=== PATIENT | female | born 1990 | race Two or more races ===

== ENCOUNTER → 2017-06-25 | Emergency (ER) | payer OTHER ==
--- NOTE | 2017-06-25 05:01 | NUR ---
PT CAME TO ER WINDOW AND TOLD ADMITTING THAT SHE FELT BETTER AND WAS GOING HOME.LWBT
== END | disposition home or self-care (01) ==
LOC: ER 04:44
DX: R10.9 Unspecified abdominal pain (principal); Z53.21 Procedure and treatment not carried out due to patient leaving prior to being seen by health care provider

== ENCOUNTER 2017-11-28 08:21 | Emergency (ER) | payer OTHER ==
[~2017-11-28] VITALS: Ht 162.6 cm; Wt 74.8 kg
--- NOTE | 2017-11-28 08:37 | NUR ---
Patient provided urine for urinalysis. Urine sample sent to lab.
--- NOTE | 2017-11-28 08:40 | NUR ---
Dr. Bird in room with patient for evaluation
[2017-11-28] MEDS ORDERED: KETOROLAC TROMETHAMINE 15 MG INJ IV ONE (09:00)
[2017-11-28] MEDS ORDERED: METOCLOPRAMIDE HCL 10 MG/2 ML VIAL IV ONE (09:00)
[2017-11-28] MEDS ORDERED: IV NORMAL SALINE 1000 ML BAG IV ONE ×2 (09:00→10:45)
[2017-11-28] MEDS ORDERED: KETOROLAC TROMETHAMINE 15 MG INJ ONE (09:23)
[2017-11-28] MEDS ORDERED: METOCLOPRAMIDE HCL 10 MG/2 ML VIAL ONE (09:25)
[2017-11-28 09:31] LABS: BASOPHILS % (AUTO) 0.1 % (0.0-2.0); EOSINOPHILS # (AUTO) 0.2 K/uL (0.0-0.7); EOSINOPHILS % (AUTO) 1.5 % (0.0-7.0); HEMATOCRIT 40.8 % (31.2-41.9); HEMOGLOBIN 13.7 g/dL (10.9-14.3); LYMPHOCYTES # (AUTO) 0.8 K/uL (20.0-40.0); LYMPHOCYTES % (AUTO) 7.1 % (20.5-51.5); MEAN CORPUSCULAR HEMOGLOBIN 27.2 uug (24.7-32.8); MEAN CORPUSCULAR HGB CONC 34 g/dL (32.3-35.6); MEAN CORPUSCULAR VOLUME 81.1 fL (75.5-95.3); MONOCYTES # (AUTO) 0.2 K/uL (2.0-10.0); MONOCYTES % (AUTO) 2.1 % (0.0-11.0); NEUTROPHILS % (AUTO) 89.2 % (38.5-71.5); PLATELET COUNT (AUTO) 288 K/uL (179-408); RED BLOOD CELL COUNT(AUTO) 5.03 MIL/uL (3.63-4.92); WHITE BLOOD COUNT (AUTO) 11.2 K/uL (3.8-11.8)
[2017-11-28 09:38] LABS: CARBON DIOXIDE 24 mmol/L (21-32); CHLORIDE 103 mmol/L (98-107); CREATININE 0.5 mg/dL (0.6-1.3); GLUCOSE 108 mg/dL (74-106); POTASSIUM 3.9 mmol/L (3.5-5.1); UREA NITROGEN, BLOOD 7 mg/dL (7-18)
[2017-11-28 09:39] LABS: *BILIRUBIN,URIN NEGATIVE (NEGATIVE); *BLOOD, URINE Trace-intact (NEGATIVE); *CLARITY,URINE CLOUDY (CLEAR); *COLOR,URINE YELLOW (YELLOW); *KETONES,URINE TRACE (NEGATIVE); *PROTEIN,URINE NEGATIVE (NEGATIVE); *UROBILINOGEN,URINE 0.2 E.U./dl (NORMAL); LEUKOCYTE ESTERASE ,URINE NEGATIVE (NEGATIVE); NITRITE, URINE NEGATIVE (NEGATIVE); UGLUCOSE NEGATIVE (NEGATIVE)
--- NOTE | 2017-11-28 09:42 | NUR ---
PT OUT OF ER FOR CT.
[2017-11-28 09:43] LABS: ALANINE AMINOTRANSFERASE 131 U/L (14-59); ALKALINE PHOSPHATASE 62 U/L (50-136); ASPARTATE AMINOTRANSFERASE 80 U/L (15-37); BILIRUBIN,DIRECT < 0.1 mg/dL (0.0-0.2); LIPASE 104 U/L (73-393); TOTAL PROTEIN, SERUM 7.5 g/dL (6.4-8.2)
[2017-11-28 09:44] LABS: BILIRUBIN,TOTAL 0.6 mg/dL (0.2-1.0)
[2017-11-28 09:53] LABS: BACTERIA,URINE FEW /HPF (NONE SEEN); MUCUS,URINE MODERATE /LPF (0-FEW); SQUAMOUS EPITHELIAL CELL,UR MANY /HPF (NONE SEEN)
[2017-11-28] MEDS ORDERED: MORPHINE SULFATE 4 MG/1 ML DISP.SYRIN IV ONE (11:15)
[2017-11-28] MEDS ORDERED: ONDANSETRON IV *ER 4 MG/2 ML VIAL IV ONE (11:15)
[2017-11-28 11:45] VITALS: BP 120/77
[2017-11-28] MEDS ORDERED: ONDANSETRON 4 MG/2 ML VIAL ONE (11:45)
[2017-11-28] MEDS ORDERED: MORPHINE SULFATE 4 MG/1 ML DISP.SYRIN ONE (11:45)
--- NOTE | 2017-11-28 11:45 | NUR ---
IV removed. Catheter intact and site benign. Pressure and 4x4 gauze applied to site. No bleeding noted.
--- NOTE | 2017-11-28 11:45 | NUR ---
Patient discharged to home in stable conditon. Written and verbal after care instructions given. Patient verbalizes understanding of instructions.
== END 2017-11-28 11:49 | disposition home or self-care (01) ==
LOC: ER 08:21
DX: K42.9 Umbilical hernia without obstruction or gangrene (principal); R10.13 Epigastric pain; R10.11 Right upper quadrant pain; J45.909 Unspecified asthma, uncomplicated; Z90.49 Acquired absence of other specified parts of digestive tract
CPT/HCPCS: 36415; 71045; 83605; 83690; 84703; 85025; 85730; 87040; A4663; J1885; J2270; J2405; J2765; J7030; J7040

== ENCOUNTER 2021-04-11 09:25 | Emergency (ER) | payer OTHER ==
[~2021-04-11] VITALS: Ht 162.6 cm; Wt 77.1 kg
--- NOTE | 2021-04-11 09:45 | NUR ---
DR Stanley at the bedside for MSE.
[2021-04-11] MEDS ORDERED: ALBUTEROL SULFATE 8 GM HFA.AER.AD IH STA (09:52)
[2021-04-11] MEDS ORDERED: predniSONE 50 MG TABLET PO ONE (10:30)
[2021-04-11] MEDS ORDERED: ALBUTEROL SULFATE 2.5 MG/3 ML NEBU NEB ONE (10:30)
[2021-04-11] MEDS ORDERED: ALBUTEROL SULFATE 2.5 MG/3 ML NEBU ONE (10:39)
[2021-04-11] MEDS ORDERED: predniSONE 50 MG TABLET ONE (10:41)
[2021-04-11] MEDS ORDERED: AZIT250T PO (11:15)
[2021-04-11] MEDS ORDERED: BENZ-13 PO (11:15)
[2021-04-11] MEDS ORDERED: PRED50TA PO (11:15)
--- NOTE | 2021-04-11 11:20 | NUR ---
Pt states feeling better after breathing treatment.
--- NOTE | 2021-04-11 11:23 | NUR ---
Patient discharged to home in stable condition. Written and verbal after care instructions given. Patient verbalizes understanding of instructions. Stressed follow up or return to ER for worsening s/s.
[2021-04-11 11:24] VITALS: BP 135/88
== END 2021-04-11 11:25 | disposition home or self-care (01) ==
LOC: ER 09:25
DX: J20.9 Acute bronchitis, unspecified (principal); Z20.822 Contact with and (suspected) exposure to COVID-19; Z82.49 Family history of ischemic heart disease and other diseases of the circulatory system; J45.909 Unspecified asthma, uncomplicated; Z87.01 Personal history of pneumonia (recurrent)
CPT/HCPCS: 71045; 87426; 94640 ×2; 99284; J7512; 70030-TC; A4663; J3535